=== PATIENT | male | born 1940 | race Caucasian/White ===

== ENCOUNTER 2019-12-18 18:35 | Inpatient (IN) ==
[2019-12-18] MEDS ORDERED: NS 0.9% 1000 ml BAG 1,000 ML IV ONE (19:38)
[2019-12-18 20:50] LABS: ABS Lymphocytes 0.6 10^3/ul (1.0-4.8); ABS Monocytes 0.3 10^3/ul (0-0.8); ABS Neutrophils 2.4 10^3/ul (1.5-7.7); Eosinophil % 0.3 %; Hematocrit 43 % (42-52); Hemoglobin 15.2 g/dL (14.0-18.0); Lymphocyte % 17.2 %; Mean Corpuscular HGB Conc 35 g/dL (31-36); Mean Corpuscular Hemoglobin 32 pg (27-31); Mean Corpuscular Volume 91 fL (80-94); Mean Platelet Volume 8.7 fL (7.4-10.4); Platelet Count 120 10^3/uL (150-450); Red Blood Count 4.77 10^6 /uL (4.18-5.48); Red Cell Distribution Width 13 % (10-15); White Blood Count 3.3 10^3/uL (3.5-10.8)
[2019-12-18 21:05] LABS: Activated Partial Thrombo Time 28.1 seconds (26.0-38.0); INR 1.26 (0.82-1.09)
[2019-12-18 21:12] LABS: Albumin 3.5 g/dL (3.2-5.2); Albumin/Globulin Ratio 0.9 (1-3); BUN/Creatinine Ratio 16.4 (8-20); C Reactive Protein 118.11 mg/L (<8.01); Calcium 9.1 mg/dL (8.6-10.3); EGFR African American 125.7 (>60); EGFR Non-African American 103.9 (>60); Globulin 3.7 g/dL (2-4); Potassium 3.7 mmol/L (3.5-5.0); Total Bilirubin 0.8 mg/dL (0.2-1.0); Total Protein 7.2 g/dL (6.4-8.9)
[2019-12-18 21:13] LABS: Troponin I 0.01 ng/mL (<0.03)
[2019-12-18] MEDS ORDERED: Iodixanol (CONTRAST) 320 MG/ML 100 ML SDV IV ONE (21:58)
[2019-12-19 00:12] LABS: Urine Appearance Clear; Urine Bilirubin Negative (Negative); Urine Blood Negative (Negative); Urine Color Yellow; Urine Glucose Negative (Negative); Urine Ketones Negative (Negative); Urine Nitrite Negative (Negative); Urine Protein Negative (Negative); Urine Specific Gravity 1.009 (1.010-1.030); Urine Urobilinogen Negative (Negative)
[2019-12-19] MEDS ORDERED: Fluticasone NASAL SPRAY 50MCG 16 gm SPRAY BTL INTRANASAL PRN (01:47)
[2019-12-19] MEDS ORDERED: Remdesivir 5 MG/ML LIQ IV Vial 200 MG in NS 0.9% 250 ml 210 ML IV ONE (01:58)
[2019-12-19] MEDS ORDERED: Enoxaparin 40 MG/0.4 ML SYR SUBCUT SCH (02:00)
[2019-12-19] MEDS ORDERED: Albuterol HFA INHALER 8 gm MDI INH PRN (03:09)
[2019-12-19] MEDS: Dexamethasone IV 4 MG/ML VIAL 1 ml VIAL IV SLOW PU SCH (03:40)
[2019-12-19] MEDS: Enoxaparin 40 MG/0.4 ML SYR SUBCUT SCH ×2 (03:40→22:01)
[2019-12-19] MEDS: NS 0.9% 1000 ml BAG 1,000 ML IV SCH (03:40)
[2019-12-19] MEDS ORDERED: Dextrose 50% Syringe 50 ml 25 GM/50 ML SYRINGE IV PUSH PRN (04:05)
[2019-12-19 04:14] LABS: Albumin 3.3 g/dL (3.2-5.2); Total Bilirubin 0.8 mg/dL (0.2-1.0)
[2019-12-19 04:20] LABS: Globulin 3.4 g/dL (2-4); Total Protein 6.7 g/dL (6.4-8.9)
[2019-12-19 05:10] LABS: Indirect Bilirubin 0.7 mg/dL (0.3-1.0)
[2019-12-19] MEDS: Aspirin EC 81 mg TAB.EC (enteric coated) PO SCH (09:00)
[2019-12-19 09:12] LABS: BUN/Creatinine Ratio 18.5 (8-20); Blood Urea Nitrogen 12 mg/dL (6-24); CO2 Carbon Dioxide 22 mmol/L (22-32); Calcium 8.1 mg/dL (8.6-10.3); Chloride 103 mmol/L (101-111); EGFR African American 143.8 (>60); EGFR Non-African American 118.8 (>60); Glucose 187 mg/dL (70-100); Sodium 133 mmol/L (135-145)
[2019-12-19 13:24] LABS: Anion Gap 8 mmol/L (2-11)
[2019-12-20 01:07] LABS: Influenza A Molecular Negative (Negative); Influenza B Molecular Negative (Negative)
[2019-12-20] MEDS ORDERED: Remdesivir 5 MG/ML LIQ IV Vial 100 MG in NS 0.9% 250 ml 230 ML IV SCH (06:00)
[2019-12-20 07:44] LABS: ALT 24 U/L (7-52); Albumin 2.7 g/dL (3.2-5.2); Albumin/Globulin Ratio 0.8 (1-3); Alkaline Phosphatase 43 U/L (34-104); BUN/Creatinine Ratio 23.2 (8-20); Blood Urea Nitrogen 16 mg/dL (6-24); CO2 Carbon Dioxide 22 mmol/L (22-32); Calcium 7.8 mg/dL (8.6-10.3); Chloride 102 mmol/L (101-111); EGFR African American 134.2 (>60); EGFR Non-African American 110.9 (>60); Globulin 3.2 g/dL (2-4); Glucose 142 mg/dL (70-100); Sodium 133 mmol/L (135-145); Total Protein 5.9 g/dL (6.4-8.9)
[2019-12-20 07:51] LABS: Anion Gap 9 mmol/L (2-11)
[2019-12-20] MEDS: Enoxaparin 40 MG/0.4 ML SYR SUBCUT SCH ×3 (08:52→20:46)
[2019-12-20] MEDS: Aspirin EC 81 mg TAB.EC (enteric coated) PO SCH (08:52)
[2019-12-20] MEDS: Dexamethasone IV 4 MG/ML VIAL 1 ml VIAL IV SLOW PU SCH (08:52)
[2019-12-20] MEDS ORDERED: Influenza VAC *QUAD* 2020-21* 0.5 ML SYRINGE IM ONE (09:00)
[2019-12-20] MEDS: NS 0.9% 1000 ml BAG 1,000 ML IV SCH (09:04)
[2019-12-20] MEDS ORDERED: Benzocaine/Menthol LOZ PO PRN (10:38)
[2019-12-20 12:41] LABS: AST Redraw 35 U/L (13-39); Potassium Redraw 3.9 mmol/L (3.5-5.0)
[2019-12-20] MEDS ORDERED: Perflutren Lipid Microsphere 3 ML VIAL ONE (15:25)
[2019-12-20] MEDS ORDERED: Furosemide 40 mg/4 ml IV VIAL IV SLOW PU ONE (15:57)
[2019-12-20] MEDS: cefTRIAXone 1 gm/50 mL NS BAG 1 GM/50 ML BAG IVPB SCH (16:15)
[2019-12-21 05:44] LABS: Albumin 2.7 g/dL (3.2-5.2); Albumin/Globulin Ratio 0.8 (1-3); BUN/Creatinine Ratio 24.2 (8-20); Calcium 8.1 mg/dL (8.6-10.3); EGFR African American 141.2 (>60); EGFR Non-African American 116.7 (>60); Globulin 3.6 g/dL (2-4); Magnesium 1.8 mg/dL (1.9-2.7); Potassium 3.6 mmol/L (3.5-5.0); Total Bilirubin 0.8 mg/dL (0.2-1.0); Total Protein 6.3 g/dL (6.4-8.9)
[2019-12-21 06:28] LABS: ABS Lymphocytes 0.5 10^3/ul (1.0-4.8); ABS Monocytes 0.2 10^3/ul (0-0.8); Eosinophil % 1.1 %; Hematocrit 40 % (42-52); Lymphocyte % 12.7 %; Mean Corpuscular HGB Conc 35 g/dL (31-36); Mean Corpuscular Hemoglobin 32 pg (27-31); Mean Corpuscular Volume 91 fL (80-94); Mean Platelet Volume 8.9 fL (7.4-10.4); Platelet Count 148 10^3/uL (150-450); Red Blood Count 4.41 10^6 /uL (4.18-5.48); Red Cell Distribution Width 13 % (10-15); White Blood Count 3.7 10^3/uL (3.5-10.8)
[2019-12-21] MEDS: Aspirin EC 81 mg TAB.EC (enteric coated) PO SCH (08:58)
[2019-12-21] MEDS: Enoxaparin 40 MG/0.4 ML SYR SUBCUT SCH (08:59)
[2019-12-21] MEDS ORDERED: Dexamethasone IV 4 MG/ML 5 ML VIAL (20 MG) ONE (09:05)
[2019-12-21] MEDS ORDERED: Dexamethasone IV 4 MG/ML VIAL 1 ml VIAL ONE (09:08)
[2019-12-21] MEDS: Dexamethasone IV 4 MG/ML VIAL 1 ml VIAL IV SLOW PU SCH (09:12)
[2019-12-21] MEDS: Remdesivir 5 MG/ML LIQ IV Vial 100 MG in NS 0.9% 250 ml 230 ML IV SCH (09:15)
[2019-12-21] MEDS: cefTRIAXone 1 gm/50 mL NS BAG 1 GM/50 ML BAG IVPB SCH (17:33)
[2019-12-22 04:53] LABS: Hematocrit 38 % (42-52); Hemoglobin 13.3 g/dL (14.0-18.0); Mean Corpuscular HGB Conc 35 g/dL (31-36); Mean Corpuscular Hemoglobin 32 pg (27-31); Mean Corpuscular Volume 90 fL (80-94); Mean Platelet Volume 8.3 fL (7.4-10.4); Platelet Count 151 10^3/uL (150-450); Red Blood Count 4.19 10^6 /uL (4.18-5.48); Red Cell Distribution Width 13 % (10-15); White Blood Count 4.3 10^3/uL (3.5-10.8)
[2019-12-22 05:08] LABS: ALT 26 U/L (7-52); Albumin 2.7 g/dL (3.2-5.2); Albumin/Globulin Ratio 0.8 (1-3); Alkaline Phosphatase 49 U/L (34-104); BUN/Creatinine Ratio 23.4 (8-20); Blood Urea Nitrogen 15 mg/dL (6-24); CO2 Carbon Dioxide 26 mmol/L (22-32); Calcium 8.2 mg/dL (8.6-10.3); Chloride 103 mmol/L (101-111); EGFR African American 146.4 (>60); Globulin 3.3 g/dL (2-4); Glucose 132 mg/dL (70-100); Sodium 137 mmol/L (135-145)
[2019-12-22 05:58] LABS: Anion Gap 8 mmol/L (2-11)
[2019-12-22 06:56] LABS: Potassium Redraw 3.7 mmol/L (3.5-5.0)
[2019-12-22] MEDS: Dexamethasone IV 4 MG/ML VIAL 1 ml VIAL IV SLOW PU SCH (08:20)
[2019-12-22] MEDS: Enoxaparin 40 MG/0.4 ML SYR SUBCUT SCH ×2 (08:20→21:03)
[2019-12-22 08:40] LABS: Magnesium 1.8 mg/dL (1.9-2.7)
[2019-12-22] MEDS: Aspirin EC 81 mg TAB.EC (enteric coated) PO SCH (09:19)
[2019-12-22] MEDS: Remdesivir 5 MG/ML LIQ IV Vial 100 MG in NS 0.9% 250 ml 230 ML IV SCH (09:20)
[2019-12-22] MEDS ORDERED: Magnesium Sulfate 2 gm BAG 2 GM/50 ML BAG IVPB ONE (13:10)
[2019-12-22] MEDS ORDERED: Magnesium Sulfate 2 gm BAG 2 GM/50 ML BAG ONE (14:25)
[2019-12-22] MEDS: cefTRIAXone 1 gm/50 mL NS BAG 1 GM/50 ML BAG IVPB SCH (17:17)
[2019-12-23] MEDS ORDERED: Al Hydrox/Mg Hydrox/Simet LIQ 30 ML UDC ONE (01:27)
[2019-12-23] MEDS ORDERED: Al Hydrox/Mg Hydrox/Simet LIQ 30 ML UDC PO ONE (01:30)
[2019-12-23 06:15] LABS: Albumin 2.7 g/dL (3.2-5.2); Albumin/Globulin Ratio 0.8 (1-3); BUN/Creatinine Ratio 22.4 (8-20); Calcium 8.1 mg/dL (8.6-10.3); EGFR African American 138.8 (>60); EGFR Non-African American 114.7 (>60); Globulin 3.5 g/dL (2-4); Potassium 3.6 mmol/L (3.5-5.0); Total Bilirubin 0.5 mg/dL (0.2-1.0); Total Protein 6.2 g/dL (6.4-8.9)
[2019-12-23] MEDS ORDERED: Potassium Chlor 20 meq TAB.ER PO ONE (07:33)
[2019-12-23 07:59] LABS: Magnesium 1.9 mg/dL (1.9-2.7)
[2019-12-23] MEDS: Enoxaparin 40 MG/0.4 ML SYR SUBCUT SCH ×2 (08:45→19:48)
[2019-12-23] MEDS: Aspirin EC 81 mg TAB.EC (enteric coated) PO SCH (08:45)
[2019-12-23] MEDS ORDERED: Influenza VAC *QUAD* 2020-21* 0.5 ML SYRINGE IM ONE (09:00)
[2019-12-23] MEDS: Dexamethasone IV 4 MG/ML VIAL 1 ml VIAL IV SLOW PU SCH (09:14)
[2019-12-23] MEDS: Remdesivir 5 MG/ML LIQ IV Vial 100 MG in NS 0.9% 250 ml 230 ML IV SCH (09:19)
[2019-12-23] MEDS: cefTRIAXone 1 gm/50 mL NS BAG 1 GM/50 ML BAG IVPB SCH (15:56)
[2019-12-24 04:47] LABS: Hematocrit 38 % (42-52); Mean Corpuscular HGB Conc 34 g/dL (31-36); Mean Corpuscular Hemoglobin 32 pg (27-31); Mean Corpuscular Volume 92 fL (80-94); Mean Platelet Volume 8.2 fL (7.4-10.4); Platelet Count 152 10^3/uL (150-450); Red Blood Count 4.12 10^6 /uL (4.18-5.48); Red Cell Distribution Width 14 % (10-15); White Blood Count 4.3 10^3/uL (3.5-10.8)
[2019-12-24 05:07] LABS: Albumin 2.7 g/dL (3.2-5.2); Albumin/Globulin Ratio 0.9 (1-3); BUN/Creatinine Ratio 20.9 (8-20); Calcium 8.1 mg/dL (8.6-10.3); EGFR African American 138.8 (>60); EGFR Non-African American 114.7 (>60); Globulin 3.1 g/dL (2-4); Magnesium 1.9 mg/dL (1.9-2.7); Potassium 4.3 mmol/L (3.5-5.0); Total Bilirubin 0.6 mg/dL (0.2-1.0); Total Protein 5.8 g/dL (6.4-8.9)
[2019-12-24 06:43] LABS: ABS Lymphocytes 0.4 10^3/ul (1.0-4.8); ABS Monocytes 0.3 10^3/ul (0-0.8); ABS Neutrophils 3.5 10^3/ul (1.5-7.7); Eosinophil % 0.8 %; Lymphocyte % 10.1 %
[2019-12-24] MEDS: Remdesivir 5 MG/ML LIQ IV Vial 100 MG in NS 0.9% 250 ml 230 ML IV SCH (07:48)
[2019-12-24] MEDS: Dexamethasone IV 4 MG/ML VIAL 1 ml VIAL IV SLOW PU SCH (09:05)
[2019-12-24] MEDS: Aspirin EC 81 mg TAB.EC (enteric coated) PO SCH (09:05)
[2019-12-24] MEDS: Enoxaparin 40 MG/0.4 ML SYR SUBCUT SCH ×2 (09:05→20:26)
[2019-12-24] MEDS ORDERED: Furosemide 40 mg/4 ml IV VIAL IV ONE (10:05)
[2019-12-24] MEDS: cefTRIAXone 1 gm/50 mL NS BAG 1 GM/50 ML BAG IVPB SCH (16:28)
[2019-12-24 17:53] LABS: BUN/Creatinine Ratio 20.8 (8-20); Calcium 8.1 mg/dL (8.6-10.3); EGFR African American 127.8 (>60); EGFR Non-African American 105.6 (>60); Potassium 4.1 mmol/L (3.5-5.0)
[2019-12-25 05:08] LABS: ABS Lymphocytes 0.5 10^3/ul (1.0-4.8); ABS Monocytes 0.3 10^3/ul (0-0.8); ABS Neutrophils 4.1 10^3/ul (1.5-7.7); Eosinophil % 0.7 %; Hematocrit 39 % (42-52); Hemoglobin 13.4 g/dL (14.0-18.0); Lymphocyte % 10.3 %; Mean Corpuscular HGB Conc 35 g/dL (31-36); Mean Corpuscular Hemoglobin 32 pg (27-31); Mean Corpuscular Volume 91 fL (80-94); Mean Platelet Volume 8.3 fL (7.4-10.4); Platelet Count 153 10^3/uL (150-450); Red Blood Count 4.24 10^6 /uL (4.18-5.48); Red Cell Distribution Width 14 % (10-15)
[2019-12-25 05:25] LABS: Albumin 2.8 g/dL (3.2-5.2); Albumin/Globulin Ratio 0.8 (1-3); BUN/Creatinine Ratio 22.1 (8-20); Calcium 8.3 mg/dL (8.6-10.3); EGFR African American 136.5 (>60); EGFR Non-African American 112.8 (>60); Globulin 3.3 g/dL (2-4); Magnesium 1.8 mg/dL (1.9-2.7); Phosphorus 3.1 mg/dL (2.5-5.0); Potassium 4.1 mmol/L (3.5-5.0); Total Bilirubin 0.6 mg/dL (0.2-1.0); Total Protein 6.1 g/dL (6.4-8.9)
[2019-12-25] MEDS ORDERED: Magnesium Sulfate 2 gm BAG 2 GM/50 ML BAG IVPB ONE (07:07)
[2019-12-25] MEDS: Enoxaparin 40 MG/0.4 ML SYR SUBCUT SCH ×2 (09:23→21:14)
[2019-12-25] MEDS: Dexamethasone IV 4 MG/ML VIAL 1 ml VIAL IV SLOW PU SCH (09:23)
[2019-12-25] MEDS: Aspirin EC 81 mg TAB.EC (enteric coated) PO SCH (09:23)
[2019-12-25] MEDS: Remdesivir 5 MG/ML LIQ IV Vial 100 MG in NS 0.9% 250 ml 230 ML IV SCH (09:30)
[2019-12-26 07:17] LABS: ABS Lymphocytes 0.6 10^3/ul (1.0-4.8); ABS Monocytes 0.5 10^3/ul (0-0.8); Eosinophil % 0.6 %; Hematocrit 39 % (42-52); Hemoglobin 13.2 g/dL (14.0-18.0); Lymphocyte % 11.7 %; Mean Corpuscular HGB Conc 34 g/dL (31-36); Mean Corpuscular Hemoglobin 32 pg (27-31); Mean Corpuscular Volume 93 fL (80-94); Mean Platelet Volume 8.2 fL (7.4-10.4); Platelet Count 144 10^3/uL (150-450); Red Blood Count 4.14 10^6 /uL (4.18-5.48); Red Cell Distribution Width 14 % (10-15); White Blood Count 5.1 10^3/uL (3.5-10.8)
[2019-12-26 07:36] LABS: Albumin 2.5 g/dL (3.2-5.2); Albumin/Globulin Ratio 0.8 (1-3); Calcium 8.5 mg/dL (8.6-10.3); EGFR African American 111.5 (>60); EGFR Non-African American 92.2 (>60); Globulin 3.3 g/dL (2-4); Magnesium 1.8 mg/dL (1.9-2.7); Potassium 4.3 mmol/L (3.5-5.0); Total Bilirubin 0.6 mg/dL (0.2-1.0); Total Protein 5.8 g/dL (6.4-8.9)
[2019-12-26] MEDS: Dexamethasone IV 4 MG/ML VIAL 1 ml VIAL IV SLOW PU SCH (08:51)
[2019-12-26] MEDS: Aspirin EC 81 mg TAB.EC (enteric coated) PO SCH (08:55)
[2019-12-26] MEDS: Enoxaparin 40 MG/0.4 ML SYR SUBCUT SCH ×2 (08:55→21:05)
[2019-12-26] MEDS ORDERED: Influenza VAC *QUAD* 2020-21* 0.5 ML SYRINGE IM ONE (09:00)
[2019-12-26] MEDS: Al Hydrox/Mg Hydrox/Simet LIQ 30 ML UDC PO PRN ×2 (12:39→21:07)
[2019-12-26] MEDS ORDERED: Magnesium Sulfate IV 1GM/100ML 1 GM/100 ML BAG IV ONE (13:33)
[2019-12-27 07:21] LABS: BUN/Creatinine Ratio 21.1 (8-20); Calcium 8.4 mg/dL (8.6-10.3); EGFR Non-African American 99.2 (>60); Magnesium 1.9 mg/dL (1.9-2.7); Potassium 3.9 mmol/L (3.5-5.0)
[2019-12-27] MEDS: Aspirin EC 81 mg TAB.EC (enteric coated) PO SCH (08:51)
[2019-12-27] MEDS: Enoxaparin 40 MG/0.4 ML SYR SUBCUT SCH (08:51)
[2019-12-27] MEDS: Al Hydrox/Mg Hydrox/Simet LIQ 30 ML UDC PO PRN (12:33)
[2019-12-27 12:34] VITALS: BP 133/66
== END 2019-12-27 14:05 | disposition home or self-care (01) | DRG 871 ==
LOC: MED 18:35 → ED 18:35 → OBSVTOIN 12-19 02:37 → MED 12-19 08:19 → ICU 12-20 13:37 → MED 12-25 11:43
PROVIDERS: ADMIT Hospitalist; ATTEND Student in an Organized Health Care Education/Training Program

== ENCOUNTER 2023-07-07 10:23 | Observation (INO) ==
[2023-07-07 11:43] LABS: Hematocrit 40.9 % (38-53); Hemoglobin 13.8 g/dL (13.2-16.3); Mean Corpuscular Hemoglobin 30.8 pg (27-33); Mean Corpuscular Hgb Conc 33.7 g/dL (31-36); Mean Corpuscular Volume 91.5 fL (80-97); Red Blood Count 4.47 10^6/uL (4.06-5.63)
[2023-07-07 11:45] LABS: INR 1.25 (0.83-1.13)
[2023-07-07 12:14] LABS: Albumin 3.8 g/dL (3.2-5.2); Albumin/Globulin Ratio 1.5 (1-3); Calcium 8.5 mg/dL (8.6-10.3); Creatinine, Serum 0.99 mg/dL (0.67-1.17); Globulin 2.5 g/dL (2-4); Potassium 3.6 mmol/L (3.5-5.0); Total Bilirubin 1.4 mg/dL (0.2-1.0); Total Protein 6.3 g/dL (6.4-8.9); eGFR CKD-EPI 76.5 (>60)
[2023-07-07 12:16] LABS: ABS Lymphocytes 0.1 10^3/uL (1.0-4.8); ABS Monocytes 0.1 10^3/uL (0.0-1.1); ABS Neutrophils 5.8 10^3/uL (1.5-7.6); Eosinophil % 0.1 %; Lymphocyte % 1.4 %; Mean Platelet Volume 8.1 fL (7.5-11.2); Platelet Count 71 10^3/uL (150-450)
[2023-07-07 13:24] LABS: High Sensitivity Troponin 1 Hr 296 pg/mL (<20)
[2023-07-07 14:37] LABS: Urine Appearance Turbid; Urine Bilirubin Negative (Negative); Urine Blood Negative (Negative); Urine Color Yellow; Urine Glucose Negative (Negative); Urine Ketones 1+ (Negative); Urine Nitrite 2+ (Negative); Urine Protein Trace (Negative); Urine Specific Gravity 1.022 (1.002-1.030); Urine Urobilinogen Negative (Negative); Urine pH 5.5 (5.0-8.0)
[2023-07-07 14:57] LABS: Urine Bacteria 1+ /HPF (Absent); Urine Red Blood Cell Trace(0-2/hpf) /HPF (0-Trace); Urine Squamous Epithelial Cell Present /HPF (Absent); Urine White Blood Cell 3+(>20/hpf) /HPF (0-Trace)
[2023-07-07 14:59] LABS: High Sensitivity Troponin 3 Hr 406 pg/mL (<20)
[2023-07-07] MEDS: cefTRIAXone 1 gm/50 mL D5W 1 GM/50 ML BAG IV ONE (15:29)
[2023-07-07] MEDS ORDERED: Dextrose 50% Syringe 50 ml 25 GM/50 ML SYRINGE IV PUSH PRN (15:55)
[2023-07-07 16:19] LABS: C Reactive Protein 16.9 mg/L (<8.01)
[2023-07-07] MEDS: Enoxaparin 40 MG/0.4 ML SYR SUBCUT SCH (17:16)
[2023-07-07] MEDS: Lactated Ringers 1000 ml BAG 1,000 ML IV SCH (17:51)
[2023-07-07 18:04] LABS: Erythrocyte Sed Rate 5 mm/Hr (0-19)
[2023-07-07 19:09] LABS: High Sensitivity Troponin 1 Hr 286 pg/mL (<20)
[2023-07-07] MEDS: Fluticasone NASAL SPRAY 50MCG 16 gm SPRAY BTL INTRANASAL SCH (21:50)
[2023-07-07] MEDS: Lactated Ringers 1000 ml BAG 500 ML IV ONE (23:15)
[2023-07-08 06:35] LABS: Hematocrit 34.6 % (38-53); Hemoglobin 12.1 g/dL (13.2-16.3); Mean Corpuscular Hemoglobin 31.6 pg (27-33); Mean Corpuscular Hgb Conc 35.1 g/dL (31-36); Mean Corpuscular Volume 90.1 fL (80-97); Mean Platelet Volume 8.6 fL (7.5-11.2); Platelet Count 63 10^3/uL (150-450); Red Blood Count 3.84 10^6/uL (4.06-5.63); Red Cell Distribution Width 14.5 % (12-17); White Blood Count 3.3 10^3/uL (3.6-10.2)
[2023-07-08 07:15] LABS: Albumin 3.1 g/dL (3.2-5.2); Albumin/Globulin Ratio 1.4 (1-3); Creatinine, Serum 0.86 mg/dL (0.67-1.17); Globulin 2.2 g/dL (2-4); Magnesium 1.4 mg/dL (1.9-2.7); Potassium 3.6 mmol/L (3.5-5.0); Total Bilirubin 0.8 mg/dL (0.2-1.0); Total Protein 5.3 g/dL (6.4-8.9)
[2023-07-08] MEDS: Potassium Chlor 20 meq TAB.ER PO ONE (09:05)
[2023-07-08] MEDS ORDERED: Magnesium Sulfate 2 gm BAG 2 GM/50 ML BAG IVPB SCH (10:00)
[2023-07-08] MEDS: Magnesium Sulfate 4 GM IV IVPB ONE (11:43)
[2023-07-08] MEDS ORDERED: cefTRIAXone 2 gm/50 mL D5W 2 GM/50 ML BAG IV SCH (15:00)
[2023-07-08] MEDS: cefTRIAXone 1 gm/50 mL D5W 1 GM/50 ML BAG IV SCH (15:42)
[2023-07-08 22:59] LABS: Ferritin 127.3 ng/mL (24-336)
[2023-07-09 06:58] LABS: Creatinine, Serum 0.83 mg/dL (0.67-1.17); Magnesium 1.9 mg/dL (1.9-2.7); eGFR CKD-EPI 87.9 (>60)
[2023-07-09 07:20] LABS: Hemoglobin 12.3 g/dL (13.2-16.3); Mean Corpuscular Hemoglobin 30.9 pg (27-33); Mean Corpuscular Hgb Conc 34.1 g/dL (31-36); Mean Corpuscular Volume 90.5 fL (80-97); Mean Platelet Volume 8.5 fL (7.5-11.2); Platelet Count 66 10^3/uL (150-450); Red Blood Count 3.98 10^6/uL (4.06-5.63); Red Cell Distribution Width 14.8 % (12-17)
[2023-07-09 08:04] LABS: ABS Eosinophils 0.1 10^3/uL (0.0-0.5); ABS Monocytes 0.5 10^3/uL (0.0-1.1); ABS Neutrophils 1.4 10^3/uL (1.5-7.6); Eosinophil % 2.1 %; Lymphocyte % 33.7 %; Target Cells 1+
[2023-07-09 10:22] VITALS: BP 158/74
[2023-07-09] MEDS: cefTRIAXone 1 gm/50 mL D5W 1 GM/50 ML BAG IV SCH (13:00)
[2023-07-10 20:43] LABS: Anaplasma phagocytophilum Negative (Negative); B. miyamotoi PCR, B Negative (Negative); Babesia divergens/MO-1 Negative (Negative); Babesia ducani Negative (Negative); Ehrlichia chaffeensis Negative (Negative); Ehrlichia ewingii/canis Negative (Negative); Ehrlichia muris eauclairensis Negative (Negative)
== END 2023-07-09 14:15 | disposition home or self-care (01) ==
LOC: ED 10:23 → EDHOLD 10:23 → MED 17:47
PROVIDERS: ADMIT Internal Medicine; ATTEND Internal Medicine